=== PATIENT | female | born 1970 | race Caucasian/White ===

== ENCOUNTER 2017-01-06 16:40 | Emergency (ER) | payer MEDICAID ==
[~2017-01-06] VITALS: Ht 172.7 cm; Wt 56.0 kg
[~2017-01-06 16:40] MED LIST: AMLO10TA2 PO; AMLODI; ASPI-496 PO; CEFA2PIG IV; ENOX40SY4 SQ; FLUC50TA PO; FOLI-17 PO; FOLIC ACID; LISI-170 PO; LORA-446 PO; LORA0.5T PO; METO50TA82 PO; ONDA4TAB7 PO; OXYC5CAP4 PO; THIA50TA2 PO; THIAMINE; metoprolol
[2017-01-06 18:01] LABS: ASPARTATE AMINO TRANSFERASE 74 U/L (15-37); BLOOD UREA NITROGEN 17 mg/dL (7-18)
[2017-01-06 20:00] VITALS: BP 135/92
[2017-01-06 20:08] LABS: PATH.CAST-FLAG NOT PRESENT; SPERM-FLAG NOT PRESENT; SRC-FLAG NOT PRESENT; XTAL-FLAG NOT PRESENT; YLC-FLAG NOT PRESENT
[2017-01-06 20:11] LABS: HCG UR OBC PASS
== END 2017-01-06 20:52 | disposition home or self-care (01) ==
LOC: ED 20:00
DX: S80.12XA Contusion of left lower leg, initial encounter (principal); R10.13 Epigastric pain; I10 Essential (primary) hypertension; F17.200 Nicotine dependence, unspecified, uncomplicated; W18.30XA Fall on same level, unspecified, initial encounter; Y93.89 Activity, other specified; Y92.89 Other specified places as the place of occurrence of the external cause; Y99.8 Other external cause status
CPT/HCPCS: 36415; 80053; 81001; 81025; 83690; 85025; 87077; 87086; 87186; 99284

== ENCOUNTER 2017-08-20 01:42 | Inpatient (IN) | payer MEDICAID ==
[~2017-08-20] VITALS: Ht 172.7 cm; Wt 42.7 kg
[~2017-08-20 01:42] MED LIST changes: +OXYC5CAP2 PO; -OXYC5CAP4 PO
[2017-08-20] MEDS ORDERED: SODIUM CHLORIDE 0.9% 1,000 ML IV ONE (01:53)
[2017-08-20] MEDS ORDERED: SODIUM CHLORIDE 0.9% 1,000ML IVBOLUS ONE (02:00)
[2017-08-20 02:16] LABS: BASOPHILS # (AUTO) 0.02 x10^3/uL (0-0.1); BASOPHILS % (AUTO) 0 % (0-1); EOSINOPHILS # (AUTO) 0.03 x10^3/uL (0-0.4); EOSINOPHILS % (AUTO) 0 % (1-7); LYMPHOCYTES # (AUTO) 1.11 x10^3/uL (1-3.4); LYMPHOCYTES % (AUTO) 11 % (22-44); MD NO; MEAN CORPUSCULAR HEMOGLOBIN 32.2 pg (27.0-34.8); MEAN CORPUSCULAR HGB CONC 33.1 g/dL (32.4-35.8); MEAN CORPUSCULAR VOLUME 97.3 fL (80-100); MEAN PLATELET VOLUME 7.1 fL (7.4-10.4); MONOCYTES # (AUTO) 0.43 x10^3/uL (0.2-0.8); MONOCYTES % (AUTO) 4 % (2-9); NEUTROPHILS # (AUTO) 8.81 x10^3/uL (1.8-6.8); NEUTROPHILS % (AUTO) 85 % (42-75); PLATELET COUNT 360 x10^3/uL (130-400); RED BLOOD COUNT 3.78 x10^6/uL (3.82-5.3); RED CELL DISTRIBUTION WIDTH 16.5 % (9.6-15.2)
[2017-08-20 02:25] LABS: ALANINE AMINOTRANSFERASE 140 U/L (12-78); ALBUMIN 2.7 g/dL (3.4-5.0); ANION GAP 19 mmol/L (5-15); CALCIUM 7.3 mg/dL (8.5-10.1); CHLORIDE 112 mmol/L (98-107); CREATININE 1.11 mg/dL (0.55-1.02)
[2017-08-20 02:30] LABS: ACETAMINOPHEN 3 mcg/mL (10-30); ALKALINE PHOSPHATASE 118 U/L (45-117); BILIRUBIN,TOTAL 0.8 mg/dL (0.2-1.0); TOTAL PROTEIN 5.7 g/dL (6.4-8.2)
[2017-08-20] MEDS ORDERED: DEXTROSE 50%, 50ML SYRINGE ONE (02:34)
[2017-08-20 02:39] LABS: AMPHETAMINE SCREEN, URINE Positive (Negative); BARBITURATE SCREEN, URINE Negative (Negative); BENZODIAZEPINE SCREEN, URINE Negative (Negative); CANNABINOID SCREEN, URINE Negative (Negative); COCAINE SCREEN, URINE Positive (Negative); METHADONE SCREEN, URINE Negative (Negative); OPIATE SCREEN, URINE Negative (Negative)
[2017-08-20] MEDS ORDERED: DEXTROSE 50%, 50ML SYRINGE IVPush ONE (03:00)
[2017-08-20 03:30] LABS: CLOSTRIDIUM DIFFICILE ANTIGEN NEGATIVE; CLOSTRIDIUM DIFFICILE TOXIN NEGATIVE (Negative)
[2017-08-20] MEDS ORDERED: POTASSIUM CHLORIDE 20 MEQ PACKET ONE (03:39)
[2017-08-20] MEDS ORDERED: ONDANSETRON 2MG/ML, 2ML ONE (03:39)
[2017-08-20] MEDS ORDERED: D5%-0.45% NACL 1,000 ML IV SCH (03:41)
[2017-08-20 03:56] LABS: MICROSCOPIC NOT IND
[2017-08-20 03:57] LABS: CULTURE INDICATED? NO
[2017-08-20] MEDS ORDERED: DOCUSATE 100 MG CAPSULE PO PRN (04:00)
[2017-08-20] MEDS ORDERED: ONDANSETRON 2MG/ML, 2ML IVPush PRN (04:00)
[2017-08-20] MEDS ORDERED: PROMETHAZINE 25 MG/ML, 1ML IM PRN (04:00)
[2017-08-20] MEDS ORDERED: POTASSIUM CHLORIDE 20 MEQ TAB.ER.PRT PO SCH (04:00)
[2017-08-20] MEDS ORDERED: LORazepam 2 MG/ML, 1ML IV PRN ×4 (04:00)
[2017-08-20] MEDS: HEPARIN 5,000 UNITS/ML, 1ML SQ SCH ×3 (04:00→22:13)
[2017-08-20] MEDS ORDERED: LORazepam 1MG TABLET PO PRN ×3 (04:00)
[2017-08-20] MEDS ORDERED: BISACODYL 10 MG SUPP PR PRN (04:00)
[2017-08-20] MEDS ORDERED: ONDANSETRON ODT 4 MG PO PRN (04:00)
[2017-08-20] MEDS ORDERED: HEPARIN 5,000 UNITS/ML, 1ML ONE (04:03)
[2017-08-20] MEDS ORDERED: POTASSIUM CHLORIDE 20 MEQ TAB.ER.PRT PO ONE (04:30)
[2017-08-20] MEDS: POTASSIUM CHLORIDE 40 MEQ, MVI ADULT 10 ML, FOLIC ACID 1 MG, MAGNESIUM SULFATE 1 GM in ... IV SCH ×2 (04:56→11:33)
[2017-08-20] MEDS ORDERED: CHLORDIAZEPOXIDE 10 MG CAPSULE PO PRN (05:00)
[2017-08-20] MEDS ORDERED: CHLORDIAZEPOXIDE 25 MG CAPSULE PO PRN ×3 (05:00)
[2017-08-20] MEDS ORDERED: GLUCAGON 1 MG IM PRN (05:00)
[2017-08-20] MEDS ORDERED: DEXTROSE 4 GM TAB.CHEW PO PRN (05:00)
[2017-08-20] MEDS ORDERED: DEXTROSE 50%, 50ML SYRINGE IVPush PRN (05:00)
[2017-08-20 05:29] LABS: INTERNATIONAL NORMALIZED RATIO 1.04 (0.93-1.1); PROTHROMBIN TIME 10.7 Seconds (9.6-11.5)
[2017-08-20 05:35] LABS: ALBUMIN 2.6 g/dL (3.4-5.0); BASOPHILS # (AUTO) 0.01 x10^3/uL (0-0.1); BASOPHILS % (AUTO) 0 % (0-1); CALCIUM 6.6 mg/dL (8.5-10.1); CHLORIDE 117 mmol/L (98-107); EOSINOPHILS % (AUTO) 0 % (1-7); LYMPHOCYTES # (AUTO) 0.62 x10^3/uL (1-3.4); LYMPHOCYTES % (AUTO) 4 % (22-44); MD NO; MEAN CORPUSCULAR HEMOGLOBIN 32.7 pg (27.0-34.8); MEAN CORPUSCULAR HGB CONC 33.6 g/dL (32.4-35.8); MEAN CORPUSCULAR VOLUME 97.2 fL (80-100); MEAN PLATELET VOLUME 7.2 fL (7.4-10.4); MONOCYTES # (AUTO) 0.47 x10^3/uL (0.2-0.8); MONOCYTES % (AUTO) 3 % (2-9); NEUTROPHILS # (AUTO) 13.15 x10^3/uL (1.8-6.8); NEUTROPHILS % (AUTO) 92 % (42-75); PLATELET COUNT 360 x10^3/uL (130-400); RED CELL DISTRIBUTION WIDTH 16.6 % (9.6-15.2)
[2017-08-20 05:45] LABS: ALANINE AMINOTRANSFERASE 286 U/L (12-78); ALKALINE PHOSPHATASE 127 U/L (45-117); ANION GAP 12 mmol/L (5-15); BILIRUBIN,TOTAL 0.4 mg/dL (0.2-1.0); CHOL/HDL RATIO 1.7; CHOLESTEROL, TOTAL 135 mg/dL (140-239); CREATININE 0.79 mg/dL (0.55-1.02); HDL CHOL % 59 % (28-40); HDL CHOLESTEROL (DIRECT) 79 mg/dL (40-60); LDL CHOLESTEROL,CALCULATED 39 mg/dL (54-169); LDL/HDL RATIO 0.5 (0.5-3.0); THYROID STIMULATING HORMONE 0.966 mIU/L (0.358-3.740); TOTAL PROTEIN 5.4 g/dL (6.4-8.2); TRIGLYCERIDES 84 mg/dL (50-200); VLDL CHOLESTEROL 17 mg/dL (0-25)
[2017-08-20] MEDS: ASPIRIN 325 MG TABLET EC PO SCH (06:55)
[2017-08-20] MEDS ORDERED: LISINOPRIL 20 MG TABLET PO SCH (09:00)
[2017-08-20] MEDS ORDERED: TEMPLATE NON-FORMULARY MED. (Amlodipine Besylate (Amlodipine Besylate**) 10 MG) PO SCH (09:00)
[2017-08-20] MEDS ORDERED: LORazepam 2 MG/ML, 1ML ONE (09:42)
[2017-08-20] MEDS: LORazepam 2 MG/ML, 1ML IV PRN ×2 (09:46→16:42)
[2017-08-20] MEDS ORDERED: AMLODIPINE 5 MG TABLET PO SCH (11:08)
[2017-08-20] MEDS: SODIUM CHLORIDE FLUSH 10ML SYR IVF SCH ×2 (11:30→22:14)
[2017-08-20 12:47] VITALS: BP 130/91
[2017-08-20] MEDS: NS + 20MEQ KCL 1,000 ML IV SCH (12:56)
[2017-08-20 18:09] VITALS: BP 135/94
[2017-08-20] MEDS: METOPROLOL TARTRATE 25 MG TABLET PO SCH (18:10)
[2017-08-21 00:49] VITALS: BP 138/95
[2017-08-21] MEDS: NS + 20MEQ KCL 1,000 ML IV SCH (00:50)
[2017-08-21] MEDS: POTASSIUM CHLORIDE 40 MEQ, MVI ADULT 10 ML, FOLIC ACID 1 MG, MAGNESIUM SULFATE 1 GM in ... IV SCH (04:33)
[2017-08-21] MEDS: HEPARIN 5,000 UNITS/ML, 1ML SQ SCH ×3 (04:33→21:29)
[2017-08-21] MEDS: LORazepam 0.5MG TABLET PO PRN (04:41)
[2017-08-21 05:29] VITALS: BP 128/84
[2017-08-21] MEDS: ASPIRIN 325 MG TABLET EC PO SCH (05:30)
[2017-08-21] MEDS: METOPROLOL TARTRATE 25 MG TABLET PO SCH ×2 (05:30→17:12)
[2017-08-21 07:00] VITALS: BP 128/59
[2017-08-21] MEDS ORDERED: AMLODIPINE 5 MG TABLET PO SCH (09:00)
[2017-08-21] MEDS ORDERED: LISINOPRIL 5 MG TABLET PO SCH (09:00)
[2017-08-21] MEDS ORDERED: NICOTINE 14MG/24 HR PATCH.TD24 TD ONE (10:00)
[2017-08-21] MEDS: SODIUM CHLORIDE FLUSH 10ML SYR IVF SCH ×2 (10:29→21:00)
[2017-08-21] MEDS: FAMOTIDINE 20 MG/2 ML IVPush SCH ×2 (12:20→22:47)
[2017-08-21] MEDS: THIAMINE 100MG TABLET PO SCH (12:20)
[2017-08-21 12:39] VITALS: BP 138/88
[2017-08-21] MEDS: LORazepam 2 MG/ML, 1ML IV PRN ×2 (16:18→23:03)
[2017-08-21] MEDS ORDERED: OMNIPAQUE 350 MG/ML, 100ML BOTTLE ONE (17:48)
[2017-08-21 20:11] VITALS: BP 137/88
[2017-08-22] MEDS ORDERED: BENZONATATE 100 MG CAPSULE PO PRN
[2017-08-22 01:38] VITALS: BP 132/89
[2017-08-22] MEDS: NS + 20MEQ KCL 1,000 ML IV SCH ×3 (01:57→22:36)
[2017-08-22] MEDS: POTASSIUM CHLORIDE 40 MEQ, MVI ADULT 10 ML, FOLIC ACID 1 MG, MAGNESIUM SULFATE 1 GM in ... IV SCH (04:45)
[2017-08-22 04:49] VITALS: BP 137/91
[2017-08-22] MEDS: ASPIRIN 81 MG TABLET EC PO SCH (04:54)
[2017-08-22] MEDS: HEPARIN 5,000 UNITS/ML, 1ML SQ SCH ×3 (04:55→22:15)
[2017-08-22] MEDS: METOPROLOL TARTRATE 25 MG TABLET PO SCH ×2 (04:55→17:39)
[2017-08-22 05:13] LABS: INTERNATIONAL NORMALIZED RATIO 0.88 (0.93-1.1); PROTHROMBIN TIME 9.2 Seconds (9.6-11.5)
[2017-08-22 05:16] LABS: BASOPHILS # (AUTO) 0.03 x10^3/uL (0-0.1); BASOPHILS % (AUTO) 1 % (0-1); EOSINOPHILS # (AUTO) 0.13 x10^3/uL (0-0.4); EOSINOPHILS % (AUTO) 3 % (1-7); LYMPHOCYTES # (AUTO) 1.34 x10^3/uL (1-3.4); LYMPHOCYTES % (AUTO) 27 % (22-44); MD NO; MEAN CORPUSCULAR HEMOGLOBIN 32.5 pg (27.0-34.8); MEAN CORPUSCULAR HGB CONC 33.9 g/dL (32.4-35.8); MEAN CORPUSCULAR VOLUME 95.9 fL (80-100); MEAN PLATELET VOLUME 8.1 fL (7.4-10.4); MONOCYTES # (AUTO) 0.81 x10^3/uL (0.2-0.8); MONOCYTES % (AUTO) 16 % (2-9); NEUTROPHILS # (AUTO) 2.64 x10^3/uL (1.8-6.8); NEUTROPHILS % (AUTO) 53 % (42-75); PLATELET COUNT 256 x10^3/uL (130-400); RED BLOOD COUNT 4.09 x10^6/uL (3.82-5.3)
[2017-08-22 05:22] LABS: CHLORIDE 105 mmol/L (98-107)
[2017-08-22 05:38] LABS: ALANINE AMINOTRANSFERASE 150 U/L (12-78); ALBUMIN 2.9 g/dL (3.4-5.0); ALKALINE PHOSPHATASE 119 U/L (45-117); ANION GAP 7 mmol/L (5-15); BILIRUBIN,TOTAL 0.6 mg/dL (0.2-1.0); CALCIUM 8.7 mg/dL (8.5-10.1); CREATININE 0.57 mg/dL (0.55-1.02); TOTAL PROTEIN 6.7 g/dL (6.4-8.2)
[2017-08-22 07:43] VITALS: BP 148/97
[2017-08-22] MEDS: FAMOTIDINE 20 MG/2 ML IVPush SCH ×2 (08:47→22:14)
[2017-08-22] MEDS: THIAMINE 100MG TABLET PO SCH (08:47)
[2017-08-22] MEDS: SODIUM CHLORIDE FLUSH 10ML SYR IVF SCH ×2 (08:48→21:00)
[2017-08-22 13:09] VITALS: BP 146/95
[2017-08-22] MEDS: LORazepam 1MG TABLET PO PRN (15:06)
[2017-08-22 19:02] VITALS: BP 148/100
[2017-08-22] MEDS: LORazepam 0.5MG TABLET PO PRN (22:36)
[2017-08-23 01:56] VITALS: BP 147/89
[2017-08-23] MEDS: LORazepam 1MG TABLET PO PRN ×2 (03:44→15:13)
[2017-08-23] MEDS: POTASSIUM CHLORIDE 40 MEQ, MVI ADULT 10 ML, FOLIC ACID 1 MG, MAGNESIUM SULFATE 1 GM in ... IV SCH (04:47)
[2017-08-23 05:51] LABS: CALCIUM 8.8 mg/dL (8.5-10.1); CHLORIDE 104 mmol/L (98-107)
[2017-08-23 05:57] LABS: ALANINE AMINOTRANSFERASE 95 U/L (12-78); ALBUMIN 2.8 g/dL (3.4-5.0); ALKALINE PHOSPHATASE 101 U/L (45-117); ANION GAP 7 mmol/L (5-15); BILIRUBIN,TOTAL 0.2 mg/dL (0.2-1.0); CREATININE 0.51 mg/dL (0.55-1.02); TOTAL PROTEIN 6.2 g/dL (6.4-8.2)
[2017-08-23 06:18] VITALS: BP 147/103
[2017-08-23] MEDS: METOPROLOL TARTRATE 25 MG TABLET PO SCH ×2 (06:19→17:52)
[2017-08-23] MEDS: ASPIRIN 81 MG TABLET EC PO SCH (06:19)
[2017-08-23] MEDS: HEPARIN 5,000 UNITS/ML, 1ML SQ SCH ×3 (06:20→21:48)
[2017-08-23 08:45] VITALS: BP 150/90
[2017-08-23] MEDS: THIAMINE 100MG TABLET PO SCH (09:33)
[2017-08-23] MEDS: SODIUM CHLORIDE FLUSH 10ML SYR IVF SCH ×2 (09:33→21:49)
[2017-08-23] MEDS: FAMOTIDINE 20 MG/2 ML IVPush SCH ×2 (09:33→21:48)
[2017-08-23] MEDS: NICOTINE 21 MG/24 HR PATCH.TD24 TD SCH (09:33)
[2017-08-23 14:43] VITALS: BP 150/98
[2017-08-23] MEDS: IBUPROFEN 200 MG TABLET PO PRN ×2 (15:12→23:29)
[2017-08-23] MEDS ORDERED: CHLORDIAZEPOXIDE 10 MG CAPSULE PO PRN (15:30)
[2017-08-23] MEDS ORDERED: MAGNESIUM SULFATE PMX 4GM/100M 100 ML IV ONE (16:00)
[2017-08-23] MEDS: CHLORDIAZEPOXIDE 10 MG CAPSULE PO SCH ×2 (16:00→21:48)
[2017-08-23] MEDS ORDERED: POTASSIUM PHOSPHATE 44 MEQ in SODIUM CHLORIDE 0.9% 500 ML IV ONE (16:00)
[2017-08-23 18:45] VITALS: BP 138/95
[2017-08-23] MEDS: MAGNESIUM OXIDE 400 MG TABLET PO SCH (21:49)
[2017-08-24 00:49] VITALS: BP 134/94
[2017-08-24] MEDS: LORazepam 0.5MG TABLET PO PRN (01:50)
[2017-08-24] MEDS: METOPROLOL TARTRATE 25 MG TABLET PO SCH (05:11)
[2017-08-24] MEDS: HEPARIN 5,000 UNITS/ML, 1ML SQ SCH ×2 (05:11→14:00)
[2017-08-24] MEDS: ASPIRIN 81 MG TABLET EC PO SCH (05:11)
[2017-08-24 05:24] LABS: ALANINE AMINOTRANSFERASE 77 U/L (12-78); ALBUMIN 2.9 g/dL (3.4-5.0); ANION GAP 9 mmol/L (5-15); CALCIUM 8.8 mg/dL (8.5-10.1); CHLORIDE 104 mmol/L (98-107)
[2017-08-24 05:54] LABS: ALKALINE PHOSPHATASE 93 U/L (45-117); BILIRUBIN,TOTAL 0.5 mg/dL (0.2-1.0); TOTAL PROTEIN 6.5 g/dL (6.4-8.2)
[2017-08-24 07:54] VITALS: BP 129/90
[2017-08-24] MEDS: NICOTINE 21 MG/24 HR PATCH.TD24 TD SCH (08:28)
[2017-08-24] MEDS: MAGNESIUM OXIDE 400 MG TABLET PO SCH (08:29)
[2017-08-24] MEDS: FAMOTIDINE 20 MG/2 ML IVPush SCH (08:29)
[2017-08-24] MEDS: THIAMINE 100MG TABLET PO SCH (08:29)
[2017-08-24] MEDS: CHLORDIAZEPOXIDE 10 MG CAPSULE PO SCH (08:30)
[2017-08-24] MEDS: SODIUM CHLORIDE FLUSH 10ML SYR IVF SCH (08:30)
[2017-08-24] MEDS ORDERED: MULTIVITAMIN 1 TABLET PO SCH (09:00)
[2017-08-24] MEDS ORDERED: FOLIC ACID 1 MG TABLET PO SCH (09:00)
[2017-08-24] MEDS ORDERED: MAGN400T26 PO (11:57)
[2017-08-24] MEDS ORDERED: THIA100T6 PO (11:57)
[2017-08-24] MEDS ORDERED: ONDA4TAB13 PO (11:57)
[2017-08-24] MEDS ORDERED: NICO-487 TD (11:57)
[2017-08-24] MEDS ORDERED: MULT1TAB60 PO (11:57)
[2017-08-24] MEDS ORDERED: METO25TA35 PO (11:57)
[2017-08-24] MEDS ORDERED: HYDR-3343 PO (12:05)
[2017-08-24] MEDS ORDERED: FLU VACC QS2017-18 (36MOS+) UP/PF 0.5 ML IM-VACC ONE (13:30)
[2017-08-24] MEDS ORDERED: PNEUMOCOCCAL 23 VACCINE IM-VACC ONE (13:30)
[2017-08-24 14:29] VITALS: BP 134/91
== END 2017-08-24 16:08 | disposition home or self-care (01) | DRG 917 ==
LOC: ED 02:54 → EDIP 02:55 → 4WST 11:05
PROVIDERS: ADMIT Surgery; ATTEND Internal Medicine
PROC: 0T9B70Z Drainage of Bladder with Drainage Device, Via Natural or Artificial Opening (ICD-10-PCS; principal; 2017-08-20)
DX: T46.5X1A Poisoning by other antihypertensive drugs, accidental (unintentional), initial encounter (principal); E43 Unspecified severe protein-calorie malnutrition; K72.00 Acute and subacute hepatic failure without coma; E87.2 Acidosis; I95.2 Hypotension due to drugs; E86.0 Dehydration; N17.9 Acute kidney failure, unspecified; I47.1 Supraventricular tachycardia; Z68.1 Body mass index [BMI] 19.9 or less, adult; F19.239 Other psychoactive substance dependence with withdrawal, unspecified; N18.3 Chronic kidney disease, stage 3 (moderate); E83.42 Hypomagnesemia; F10.129 Alcohol abuse with intoxication, unspecified; F14.10 Cocaine abuse, uncomplicated; N28.1 Cyst of kidney, acquired; F41.9 Anxiety disorder, unspecified; F32.9 Major depressive disorder, single episode, unspecified; E83.51 Hypocalcemia; E87.6 Hypokalemia; E16.2 Hypoglycemia, unspecified; I12.9 Hypertensive chronic kidney disease with stage 1 through stage 4 chronic kidney disease, or unspecified chronic kidney disease; J44.9 Chronic obstructive pulmonary disease, unspecified; Z90.89 Acquired absence of other organs; Y92.89 Other specified places as the place of occurrence of the external cause; Z23 Encounter for immunization
CPT/HCPCS: 36415; 36600; 71010; 74177; 76700; 80053; 80061; 80074; 80307; 80329; 81003; 82803; 82962; 83735; 84100; 84443; 84703; 85025; 85610; 87040; 87324; 90686; 90732; 93005; 93306; 96361; 96374; J1644; J2405; J3475; J3480; J7042; Q9967; G0479; G0480; J2060; J7030; J7040; S0028

== ENCOUNTER 2017-12-10 23:02 | Emergency (ER) | payer MEDICAID, OTHER ==
[~2017-12-10] VITALS: Ht 172.7 cm; Wt 65.0 kg
[~2017-12-10 23:02] MED LIST changes: +HYDR-3343 PO; +MAGN400T26 PO; +METO25TA35 PO; +MULT1TAB60 PO; +NICO-487 TD; +ONDA4TAB13 PO; +THIA100T6 PO
[2017-12-10] MEDS ORDERED: ADENOSINE 6 MG/2 ML IVPush ONE ×2 (23:30)
[2017-12-10] MEDS ORDERED: ADENOSINE 6 MG/2 ML ONE (23:32)
[2017-12-10 23:40] LABS: BASOPHILS # (AUTO) 0.11 x10^3/uL (0-0.1); BASOPHILS % (AUTO) 1 % (0-1); EOSINOPHILS # (AUTO) 0.05 x10^3/uL (0-0.4); EOSINOPHILS % (AUTO) 0 % (1-7); LYMPHOCYTES # (AUTO) 2.48 x10^3/uL (1-3.4); LYMPHOCYTES % (AUTO) 16 % (22-44); MD NO; MEAN CORPUSCULAR HEMOGLOBIN 28.1 pg (27.0-34.8); MEAN CORPUSCULAR HGB CONC 32.4 g/dL (32.4-35.8); MEAN CORPUSCULAR VOLUME 86.4 fL (80-100); MEAN PLATELET VOLUME 6.8 fL (7.4-10.4); MONOCYTES # (AUTO) 1.01 x10^3/uL (0.2-0.8); MONOCYTES % (AUTO) 7 % (2-9); NEUTROPHILS # (AUTO) 11.95 x10^3/uL (1.8-6.8); NEUTROPHILS % (AUTO) 77 % (42-75); PLATELET COUNT 604 x10^3/uL (130-400); RED BLOOD COUNT 4.32 x10^6/uL (3.82-5.3); RED CELL DISTRIBUTION WIDTH 17.9 % (9.6-15.2)
[2017-12-10 23:50] LABS: ALANINE AMINOTRANSFERASE 17 U/L (12-78); ANION GAP 12 mmol/L (5-15); CALCIUM 8.4 mg/dL (8.5-10.1); CHLORIDE 97 mmol/L (98-107)
[2017-12-10 23:53] LABS: ALKALINE PHOSPHATASE 105 U/L (45-117); BILIRUBIN,TOTAL 0.2 mg/dL (0.2-1.0); TOTAL PROTEIN 7.3 g/dL (6.4-8.2)
[2017-12-11] MEDS ORDERED: SODIUM CHLORIDE 0.9% 1,000ML IVBOLUS ONE
[2017-12-11 01:10] VITALS: BP 100/69
== END 2017-12-11 02:21 | disposition home or self-care (01) ==
LOC: ED 23:59
DX: I47.1 Supraventricular tachycardia (principal); E86.0 Dehydration; F10.120 Alcohol abuse with intoxication, uncomplicated; I10 Essential (primary) hypertension; R00.2 Palpitations; Z79.899 Other long term (current) drug therapy; Y90.9 Presence of alcohol in blood, level not specified
CPT/HCPCS: 36415; 80053; 80307; 83735; 85025; 93005; 96361; 96374; 99291; J0153; J7030

== ENCOUNTER 2019-01-16 17:47 | Emergency (ER) | payer MEDICAID ==
[~2019-01-16] VITALS: Ht 172.7 cm; Wt 56.3 kg
[~2019-01-16 17:47] MED LIST changes: -AMLO10TA2 PO; +AMLO10TA8 PO; -THIA100T6 PO; +THIA100T67 PO
[2019-01-16] MEDS ORDERED: ONDANSETRON 2MG/ML, 2ML IVPush ONE (18:00)
[2019-01-16] MEDS ORDERED: SODIUM CHLORIDE FLUSH 10ML SYR IVF ONE (18:00)
[2019-01-16] MEDS ORDERED: SODIUM CHLORIDE 0.9% 1,000 ML IV ONE (18:34)
[2019-01-16 18:51] LABS: ALBUMIN 2.8 g/dL (3.4-5.0); ANION GAP 9 mmol/L (5-15); CALCIUM 8.2 mg/dL (8.5-10.1); CHLORIDE 104 mmol/L (98-107)
[2019-01-16 18:59] LABS: ALANINE AMINOTRANSFERASE 18 U/L (12-78); ALKALINE PHOSPHATASE 127 U/L (45-117); BILIRUBIN,TOTAL 0.2 mg/dL (0.2-1.0); CREATININE 0.74 mg/dL (0.55-1.02); TROPONIN I < 0.015 ng/mL (0.000-0.045)
[2019-01-16] MEDS ORDERED: LORazepam 2 MG/ML, 1ML IVPush ONE (19:00)
[2019-01-16] MEDS ORDERED: SODIUM CHLORIDE 0.9% 1,000ML IVBOLUS ONE (19:00)
[2019-01-16 19:17] LABS: BASOPHILS % (AUTO) 0 % (0-1); EOSINOPHILS # (AUTO) 0.06 x10^3/uL (0-0.4); EOSINOPHILS % (AUTO) 1 % (1-7); LYMPHOCYTES # (AUTO) 1.15 x10^3/uL (1-3.4); LYMPHOCYTES % (AUTO) 17 % (22-44); MD NO; MEAN CORPUSCULAR HEMOGLOBIN 30.4 pg (27.0-34.8); MEAN CORPUSCULAR HGB CONC 32.9 g/dL (32.4-35.8); MEAN CORPUSCULAR VOLUME 92.4 fL (80-100); MEAN PLATELET VOLUME 7.6 fL (7.4-10.4); MONOCYTES % (AUTO) 18 % (2-9); NEUTROPHILS # (AUTO) 4.27 x10^3/uL (1.8-6.8); NEUTROPHILS % (AUTO) 64 % (42-75); PLATELET COUNT 445 x10^3/uL (130-400); RED BLOOD COUNT 4.71 x10^6/uL (3.82-5.3); RED CELL DISTRIBUTION WIDTH 19.8 % (9.6-15.2)
[2019-01-16] MEDS ORDERED: ONDANSETRON 2MG/ML, 2ML ONE ×2 (19:24→19:32)
[2019-01-16] MEDS ORDERED: MAALOX/HYOSCYAMINE/LIDOCAINE 45 ML BTL ONE ×2 (19:24→19:32)
[2019-01-16] MEDS ORDERED: MAALOX/HYOSCYAMINE/LIDOCAINE 45 ML BTL PO ONE (19:30)
--- NOTE | 2019-01-16 19:30 | NUR ---
ASSUMED CARE OF PT AT THIS TIME. THIS IS A 48 YO FEMALE WHO PRESENTS TO THE ER C/O INTERMITTENT SHARP STERNAL/CENTRAL CHEST PAIN SINCE "SUPER EARLY THIS MORNING" AND RATED AT 8/10 WHEN PRESENT. PT REPORTS FEELING SOB, DIZZY, NAUSEOUS AND ANXIOUS. PT AO X 4. SKIN PWD. RESP EVEN AND UNLABORED. PT NSR 80'S ON NURSING UNIT COORDINATOR. PT UP TO RESTROOM. STEADY UPON AMBULATION. URINE SAMPLE OBTAINED AND SENT TO LAB. PT MEDICATED ORDERED FOR PAIN/ANXIETY. PT AWARE WE ARE WAITING FOR LAB/IMAGING RESULTS. CALL LIGHT WITHIN REACH. WILL CONT TO MONITOR PT.
[2019-01-16] MEDS ORDERED: LORazepam 2 MG/ML, 1ML ONE (19:32)
[2019-01-16 20:19] LABS: MICROSCOPIC AUTO
--- NOTE | 2019-01-16 20:25 | NUR ---
PT DOZING ON OREN. NAD NOTED. SKIN PWD. RESP EVEN AND UNLABORED. PT AO X 4. PT NSR 80'S ON BELT FIXER. CALL LIGHT WITHIN REACH. WILL CONT TO MONITOR PT.
[2019-01-16 20:41] LABS: CULTURE INDICATED? YES
--- NOTE | 2019-01-16 21:05 | NUR ---
PT CURRENTLY DOZING ON VINCERJAE. NAD NOTED. SKIN PWD. RESP EVEN AND UNLABORED. PT DENIES NEEDS/PAIN AT THIS TIME. PT NSR 80'S ON LEARNING ANALYST. PT ON CONT BP, CARDIAC AND O2 MONITORS. CALL LIGHT WITHIN REACH. WILL CONT TO MONITOR PT.
[2019-01-16 22:06] VITALS: BP 145/89
== END 2019-01-16 22:08 | disposition home or self-care (01) ==
LOC: ED 21:52
DX: K29.20 Alcoholic gastritis without bleeding (principal); F10.10 Alcohol abuse, uncomplicated; N30.00 Acute cystitis without hematuria; I10 Essential (primary) hypertension; F41.1 Generalized anxiety disorder; Z90.89 Acquired absence of other organs
CPT/HCPCS: 36415; 71046; 80053; 81001; 83690; 84484; 84703; 85025; 87077; 87086; 93005; 96361; 96374; 96375; 99284; J2060; J2405; J7030; 87186